=== PATIENT | male | born 1990 | race Caucasian/White ===

== ENCOUNTER 2021-11-12 18:38 | Emergency (ER) | payer OTHER, SELFPAY ==
--- NOTE | ~2021-11-12 | XR_ITS ---
EXAM: XR foot RT min 3V DATE: 11/12/2021 19:08 HISTORY: r/o FB, ABCESS TO BOTTOM RT FOOT . COMPARISON: None available. FINDINGS: Normal mineralization. No fracture or dislocation. No lytic or blastic lesion. Joint space s are maintained. No erosion or periosteal change. Soft tissues within normal limits. No radiopaque f oreign body. No subcutaneous emphysema. IMPRESSION: Normal right foot radiograph findings. Reviewed, dictated and finalized at location [facility].
[2021-11-12 18:47] VITALS: BP 141/78; PULSE 83; RESP 16; TEMP 36.6; O2SAT 100
--- NOTE | 2021-11-12 18:59 | ED.WOUNDLAC ---
HPI - Wound/Laceration General Chief Complaint: Wound/Laceration Stated Complaint: R. foot abcess Time Seen by Provider: 11/12/21 18:51 History of Present Illness HPI narrative: Patient is a 31-year-old male here for evaluation of an intermittent rash on his right foot. States that the rash first came up in December of last year, rash was attributed to athletes foot, he was given a cream by his PCP and it cleared up. States that the rash came back a couple days ago, and is now somewhat painful on the ball of his foot. Notes that he has had pain in the foot with plantar flexion and also pain with bearing weight. Denies fevers, chills, redness up the leg. Related Data Allergies Allergy/AdvReac Type Severity Reaction Status Date / Time No Known Allergies Allergy Verified 11/12/21 18:49 Review of Systems Review of Systems: Gen: Denies fevers or chills Eyes: Denies eye pain or visual change ENT: Denies congestion Respiratory: Denies shortness of breath or cough CV: Denies chest pain or palpitations GI: Denies abdominal pain nausea, emesis or diarrhea : denies burning, urgency, frequency or hematuria Musculoskeletal: Denies back pain or muscle pain Neuro: Denies numbness, tingling, weakness or focal weakness Skin: Reports rash to right foot Except as documented, all other systems reviewed and negative Exam Narrative: Gen: Alert, oriented, no acute distress Eyes: EOMI, no icterus Pulm: Respirations even and unlabored, symmetric thorax expansion, no audible stridor or visible cyanosis CV: Palpable dp/pt pulses bilaterally. GI: No distension, no voluntary/involuntary guarding Neuro: AOx4, moves all extremities without apparent difficulty or weakness, follows commands Skin: Patient has flaky dry skin to the plantar aspect of his right foot near toes 2-5. No ulcers. He has a pinpoint area of induration on the plantar aspect proximal to toe 3 that is tender to palpation. Psych: Normal mood/affect, insight/judgement good, adequate fund of knowledge, recent/remote memory intact Course Vital Signs Vital signs: Vital Signs Temperature 97.9 F 11/12/21 18:47 Pulse Rate 83 11/12/21 18:47 Respiratory Rate 16 11/12/21 18:47 Blood Pressure 141/78 H 11/12/21 18:47 Pulse Oximetry 100 07/27/22 18:47 Temperature 97.9 F 11/12/21 18:47 Pulse Rate 83 11/12/21 18:47 Respiratory Rate 16 11/12/21 18:47 Blood Pressure 141/78 H 11/12/21 18:47 Pulse Oximetry 100 11/12/21 18:47 MDM - Wound/Laceration MDM Narrative Medical decision making narrative: 31-year-old male here for evaluation of a rash to his right foot that first came in December last year, cleared with topical antifungals, and is now back. X-ray was obtained to rule out bony deformity or possible foreign body, which was negative for acute process. He has range of motion in his foot, doubt septic arthritis. On exam, it appears he has a bacterial infection superimposed on the fungal infection. We will treat with oral antifungals and oral antibiotics, and provide him with podiatry follow-up. He was given reasons to return to the ED and he voiced understanding. Discharge Plan Discharge Clinical Impression: Athlete's foot on right Patient Disposition: Home, Self-Care Condition: Stable Instructions: Antibiotic Form, Athlete's Foot (ED) Additional Instructions: You likely have athlete's foot that is superimposed with a bacterial infection. I will prescribe oral antifungals and antibiotics. You may use Ibuprofen for pain. Return to the emergency room if you cannot walk due to pain, if you develop a fever, chills. Follow up with a vine fruit farming supervisor if not better. Prescriptions: New terbinafine HCl 250 mg tablet 250 mg PO DAILY Qty: 14 0RF doxycycline hyclate 100 mg capsule 100 mg PO BID Qty: 10 0RF Follow-up/Referrals: Wiliam Torres DPM [Physician] - 1 Week PHYSICIAN,[employer]HE[employer]ER [Primary Care Provider] -
== END 2021-11-12 20:20 | disposition home or self-care (01) ==
PROVIDERS: Emergency Provider Emergency Medicine
DX: B35.3 Tinea pedis (principal)
CPT/HCPCS: 73630; 99283